=== PATIENT | female | born 1965 | race Two or more races ===

== ENCOUNTER 2018-07-13 21:42 | Emergency (ER) | payer SELFPAY ==
[~2018-07-13] VITALS: Ht 160 cm; Wt 43.1 kg
--- NOTE | 2018-07-13 22:00 | NUR ---
ED Nurse Note: Patient presents to ED in wheelchair with family c/o weakness for 2x days. Pt AO4. NAD. VSS. Family at bedside. Denies pain or SOB.
--- NOTE | 2018-07-13 22:15 | NUR ---
ED Nurse Note: IV access established. Blood drawn and sent to lab.
--- NOTE | 2018-07-13 22:21 | Emergency Room Report ---
History of Present Illness General Chief Complaint: Generalized Weakness Source: Patient Present Illness HPI Patient has history of diabetes. Patient states that she's been feeling weak for the last 2 days. Patient is [place] with translators from her family here to help. Patient apparently has been too weak to get out of bed according to family. Patient complains of full body pain. Patient denies any nausea vomiting. Denies any chest pain shortness of breath. Denies any dysuria or urinary frequency. Patient is not a very good historian. No other complaints were noted. No prior episodes of this.No other modifying factors. No other associated signs and symptoms. No other complaints were noted. Allergies: Coded Allergies: No Known Allergies (Unverified , 07/13/18) Patient History Past Medical History: DM Past Surgical History: none Pertinent Family History: none Social History: Denies: smoking, alcohol use, drug use Last Menstrual Period: OLYA Reviewed Nursing Documentation: PMH: Agreed; PSxH: Agreed Nursing Documentation-PMH Past Medical History: No History, Except For Hx Diabetes: Yes - type 2 Review of Systems All Other Systems: negative except mentioned in HPI Physical Exam Vital Signs Date Time Temp Pulse Resp B/P (MAP) Pulse Ox O2 Delivery O2 Flow Rate FiO2 07/13/18 21:57 98.1 110 14 145/67 99 Room Air Sp02 EP Interpretation: reviewed, normal General Appearance: alert, moderate distress Head: atraumatic Eyes: bilateral eye normal inspection ENT: normal ENT inspection, hearing grossly normal, normal voice Neck: normal inspection, full range of motion, supple, no bony tend Respiratory: normal inspection, lungs clear, normal breath sounds, no respiratory distress, no retraction, no wheezing Cardiovascular #1: regular rate, rhythm, no edema Gastrointestinal: normal inspection, normal bowel sounds, non tender, soft, no guarding, no hernia Genitourinary: no CVA tenderness Musculoskeletal: normal inspection, back normal, normal range of motion Neurologic: normal inspection, alert, responsive, speech normal Psychiatric: depressed affect, anxious Skin: normal inspection, normal color, no rash Medical Decision Making Diagnostic Impression: Primary Impression: Hyperglycemia Additional Impression: Episode of generalized weakness ER Course Patient presents emergency department today complaining of generalized weakness. Differential considerations include infectious process, dehydration, hyperglycemia, DKA just to name a few.Given the severity of the patient's presentation I felt this is a highly complex patient. This patient required extensive workup. Patient laboratory workup was noted to be negative. Patient was given fluids and Zofran and felt better. I offered to admit the patient for further treatment fluid hydration the patient states that she feels better once be discharged. Patient was given a prescription for metformin.Patient is advised to follow up with primary doctor in 2-3 days and return the emergency room for any worsening symptoms and as needed. Labs Test 07/13/18 22:15 07/13/18 23:00 White Blood Count 7.6 K/UL (4.8-10.8) Red Blood Count 4.13 M/UL (4.20-5.40) Hemoglobin 12.9 G/DL (12.0-16.0) Hematocrit 38.8 % (37.0-47.0) Mean Corpuscular Volume 94 FL (80-99) Mean Corpuscular Hemoglobin 31.4 PG (27.0-31.0) Mean Corpuscular Hemoglobin Concent 33.4 G/DL (32.0-36.0) Red Cell Distribution Width 11.2 % (11.6-14.8) Platelet Count 185 K/UL (150-450) Mean Platelet Volume 8.7 FL (6.5-10.1) Neutrophils (%) (Auto) 76.2 % (45.0-75.0) Lymphocytes (%) (Auto) 11.8 % (20.0-45.0) Monocytes (%) (Auto) 9.8 % (1.0-10.0) Eosinophils (%) (Auto) 0.0 % (0.0-3.0) Basophils (%) (Auto) 2.2 % (0.0-2.0) Sodium Level 131 MMOL/L (136-145) Potassium Level 4.6 MMOL/L (3.5-5.1) Chloride Level 96 MMOL/L (98-107) Carbon Dioxide Level 24 MMOL/L (21-32) Anion Gap 12 mmol/L (5-15) Blood Urea Nitrogen 10 mg/dL (7-18) Creatinine 0.8 MG/DL (0.55-1.30) Estimat Glomerular Filtration Rate > 60 mL/min (>60) Glucose Level 416 MG/DL (74-106) Calcium Level 9.0 MG/DL (8.5-10.1) Total Bilirubin 0.4 MG/DL (0.2-1.0) Aspartate Amino Transf (AST/SGOT) 25 U/L (15-37) Alanine Aminotransferase (ALT/SGPT) 17 U/L (12-78) Alkaline Phosphatase 85 U/L (46-116) Troponin I 0.000 ng/mL (0.000-0.056) Total Protein 7.9 G/DL (6.4-8.2) Albumin 3.7 G/DL (3.4-5.0) Globulin 4.2 g/dL Albumin/Globulin Ratio 0.9 (1.0-2.7) Lipase 106 U/L (73-393) Urine Color Pale yellow Urine Appearance Clear Urine pH 6 (4.5-8.0) Urine Specific [place] 1.010 (1.005-1.035) Urine Protein 3+ (NEGATIVE) Urine Glucose (UA) 4+ (NEGATIVE) Urine Ketones 3+ (NEGATIVE) Urine Blood 3+ (NEGATIVE) Urine Nitrite Negative (NEGATIVE) Urine Bilirubin Negative (NEGATIVE) Urine Urobilinogen Normal MG/DL (0.0-1.0) Urine Leukocyte Esterase Negative (NEGATIVE) Urine RBC 2-4 /HPF (0 - 2) Urine WBC 0-2 /HPF (0 - 2) Urine Squamous Epithelial Cells Few /LPF (NONE/OCC) Urine Bacteria Occasional /HPF (NONE) Urine Yeast Occasional /HPF (NONE) EKG Diagnostic Results Rate: normal Rhythm: NSR ST Segments: no acute changes Rhythm Strip Diag. Results EP Interpretation: yes Rate: 108 Rhythm: NSR, no PVC's, no ectopy Chest X-Ray Diagnostic Results Chest X-Ray Diagnostic Results : Chest X-Ray Ordered: Yes # of Views/Limited/Complete: 1 View Indication: Shortness of Breath EP Interpretation: Yes Interpretation: no consolidation, no effusion, no pneumothorax, no acute cardiopulmonary disease Impression: No acute disease Last Vital Signs Date Time Temp Pulse Resp B/P (MAP) Pulse Ox O2 Delivery O2 Flow Rate FiO2 07/13/18 21:57 98.1 110 14 145/67 99 Room Air Status: improved Disposition: HOME, SELF-CARE Condition: Stable Scripts Ondansetron (Zofran) 4 Mg Tablet 4 MG ORAL Q6H PRN for Nausea & Vomiting, #10 TAB 0 Refills Prov: Chris Bartlett MD 07/14/18 Metformin Hcl* (METFORMIN HCL*) 500 Mg Tablet 500 MG ORAL TWICE A DAY for 14 Days, TAB Prov: Chris Bartlett MD 07/14/18 Chris Bartlett MD Jul 13, 2018 22:21
[2018-07-13 22:45] LABS: BASOPHILS % (AUTO) 2.2 % (0.0-2.0); HEMATOCRIT 38.8 % (37.0-47.0); HEMOGLOBIN 12.9 G/DL (12.0-16.0); LYMPHOCYTES % (AUTO) 11.8 % (20.0-45.0); MEAN CORPUSCULAR VOLUME 94 FL (80-99); MONOCYTES % (AUTO) 9.8 % (1.0-10.0); NEUTROPHILS % (AUTO) 76.2 % (45.0-75.0); PLATELET COUNT 185 K/UL (150-450); RED BLOOD COUNT 4.13 M/UL (4.20-5.40); RED CELL DISTRIBUTION WIDTH 11.2 % (11.6-14.8); WHITE BLOOD COUNT 7.6 K/UL (4.8-10.8)
[2018-07-13 22:56] LABS: ANION GAP 12 mmol/L (5-15); BLOOD UREA NITROGEN 10 mg/dL (7-18); CARBON DIOXIDE 24 MMOL/L (21-32); CHLORIDE 96 MMOL/L (98-107); CREATININE 0.8 MG/DL (0.55-1.30); POTASSIUM 4.6 MMOL/L (3.5-5.1); SODIUM 131 MMOL/L (136-145)
[2018-07-13 22:59] VITALS: BP 145/67
[2018-07-13 23:03] LABS: ALANINE AMINOTRANSFERASE 17 U/L (12-78); ALBUMIN 3.7 G/DL (3.4-5.0); ALBUMIN/GLOBULIN RATIO 0.9 (1.0-2.7); ALKALINE PHOSPHATASE 85 U/L (46-116); ASPARTATE AMINO TRANSFERASE 25 U/L (15-37); BILIRUBIN,TOTAL 0.4 MG/DL (0.2-1.0)
[2018-07-13 23:24] LABS: APPEARANCE,URINE CLEAR; BILIRUBIN, URINE NEGATIVE (NEGATIVE); COLOR,URINE PALE YELLOW; GLUCOSE, URINE (UA) 4+ (NEGATIVE); KETONES,URINE 3+ (NEGATIVE); LEUKOCYTE ESTERASE ,URINE NEGATIVE (NEGATIVE); NITRITE,URINE NEGATIVE (NEGATIVE); PH,URINE 6 (4.5-8.0); PROTEIN,URINE 3+ (NEGATIVE); UROBILINOGEN,URINE NORMAL MG/DL (0.0-1.0)
--- NOTE | 2018-07-13 23:36 | Diagnostic Imaging Report ---
EXAM: XR Chest, 1 View CLINICAL HISTORY: COUGH TECHNIQUE: Frontal view of the chest. COMPARISON: No relevant prior studies available. FINDINGS: Lungs: Unremarkable. No consolidation. Pleural space: Unremarkable. No pneumothorax. Heart: Unremarkable. No cardiomegaly. Mediastinum: Unremarkable. Bones/joints: Unremarkable. IMPRESSION: No radiographic evidence of acute cardiopulmonary disease.
[2018-07-14] MEDS ORDERED: METFORMIN HCL500 M1 ORAL (01:05)
[2018-07-14] MEDS ORDERED: ZOFRAN4 MG ORAL (01:06)
--- NOTE | 2018-07-14 01:07 | NUR ---
ED Nurse Note: Patient states she is feeling better and wants to go. ERMD assessed for discharge.
--- NOTE | 2018-07-14 01:10 | NUR ---
ED Nurse Note: Patient cleared for discharge per ERMD. AO4. NAD. VSS. Accompanied by family Patient given prescriptions and discharge instructions; verbalized understanding. IV and ID band removed. Patient ambulated out with all personal belongings with steady gait.
[2018-07-14 01:17] VITALS: BP 145/67
== END 2018-07-14 01:10 | disposition home or self-care (01) ==
LOC: EMR 22:10 → CANBEDREQ 07-14 00:59 → EMR 07-14 01:10
DX: E11.65 Type 2 diabetes mellitus with hyperglycemia (principal); R53.1 Weakness
CPT/HCPCS: 36415; 71045; 80053; 81003; 83690; 84484; 85025; 87086; 93005; 96360; 99284